=== PATIENT | male | born 1950 | race Caucasian/White ===

== ENCOUNTER 2022-11-30 01:21 | Observation (INO) ==
[2022-11-30] MEDS ORDERED: dilTIAZem HCl 5 MG/ML 5 ML VIAL IV ONE (01:27)
[2022-11-30] MEDS ORDERED: SODIUM CHLORIDE 0.9% 1000ML 500 ML IV ONE (01:29)
[2022-11-30] MEDS ORDERED: dilTIAZem HCl 5 MG/ML 5 ML VIAL IV STA (01:29)
--- NOTE | 2022-11-30 01:34 | Emergency Department Note ---
Impression & Plan Chest pain ADMIT ED Provider Note HPI: The patient is a 72-year-old gentleman with history of atrial fibrillation, status post recent pacemaker placement, presents emergency department this evening with chest pain. Patient states that proximately 2 hours prior to arri hernandez to the ED he developed some substernal chest discomfort. Patient states it was relatively constant and therefore he contacted EMS for transport to the ED. On arrival patient states his chest pain is almost completely gone, he did receive some nitroglycerin in route via EMS which he states improved his discomfort. On arrival the patient is noted to be tachycardic in the 130s consistent with atrial fibrillation with RVR. ROS: - Per HPI *Outpatient medications and allergy history reviewed. *Pertinent external medical records reviewed. PE: General: Alert HEENT: Normocephalic, trachea midline Eyes: Extraocular eye movement is intact, no scleral erythema Pulmonary: Clear to auscultation bilaterally, no wheezing Cardio: Tachycardic rate and irregular rhythm GI: Abdomen is soft, nontender : No suprapubic tenderness MSK: No evidence of trauma or malformation of the extremities, no edema Skin: No evidence of rash Neuro: Alert, no focal deficits Psychiatric: Cooperative lunchroom monitor: - An order was placed for continuous cardiac monitoring - Patient was noted to be in atrial fibrillation with a rate of 127 EKG: (As interpreted by myself): Rate: 128 Rhythm: Atrial fibrillation with RVR Intervals: Within normal limits ST changes: No ST elevation Time: 0127 Interventions: -Aspirin and nitroglycerin provided via EMS prior to arrival Medical Decision Making: Patient presented to the emergency department with transient sensation of chest discomfort, on arrival the patient states this is much improved, he is noted to be in atrial fibrillation with RVR, he does have a history of atrial fibrillation. Chest x-ray obtained does not show any evidence of pneumothorax per my interpretation, EKG shows atrial fibrillation without any ST elevation, patient was given a dose of IV diltiazem and rate did respond into the 90s. High-sensitivity troponin level is elevated at 103, given patient's recent pacemaker implantation, unclear if this could be related to the procedure or if this could be ischemia related to his pain. Patient states his pain is much improved but he still does have some mild chest discomfort. I feel he needs to be admitted to the hospital for trending of troponin levels and observation of his symptoms. Patient is in agreement as this is at the bedside. Case was discussed with the on-call hospitalist for [facility] [place], Dr. Smith, and the patient was placed for admission in stable condition. He was given aspirin prior to arrival. Disposition discussion held by myself with: Patient and at the bedside Discharge prescriptions: * CRITICAL CARE TIME: (40 ) minutes -Stabilization of tachyarrhythmia requiring IV rate control medications for atrial fibrillation with RVR, time spent at the bedside, interpretation of diagnostic studies, discussion with other physicians and arrangement of admission Diagnosis: 1. Atrial fibrillation with RVR 2. Chest pain, acute, nonspecific 3. Elevated troponin Disposition: Admission Balbir Aguiar DO Emergency Medicine Past Med/Surg History Social History Smoking Status: Former smoker Hx Alcohol Use: Yes Hx Substance Use: No Preferred Language: Japanese Jr. Systems Administrator Required: No Current Living Situation: Spouse Feels Safe at Home: Yes Assistive Devices: None Allergies Allergies Allergy/AdvReac Type Severity Reaction Status Date / Time bee venom protein (honey bee) Allergy Severe Anaphylaxis Verified 03/30/22 09:17 Home Meds Home Medications Medication Instructions Recorded Confirmed aspirin 81 mg tablet,delayed 81 mg PO DAILY 05/14/20 11/30/22 release atorvastatin 20 mg tablet 20 mg PO 05/14/20 11/30/22 fluticasone propionate 50 2 spray intranasal DAILY 05/14/20 11/30/22 mcg/actuation nasal spray,suspension metformin 500 mg tablet 500 mg PO [facility] 05/14/20 11/30/22 metoprolol succinate 25 mg 25 mg PO [facility] 05/14/20 11/30/22 tablet,extended release 24 hr montelukast 10 mg tablet 10 mg PO [facility] 05/14/20 11/30/22 apixaban 5 mg tablet (Eliquis) 5 mg PO [facility] 11/28/22 11/30/22 docusate sodium 100 mg capsule 100 mg PO [facility] 11/28/22 11/30/22 famotidine 20 mg tablet (Pepcid) 20 mg PO 11/28/22 11/30/22 amlodipine 5 mg tablet 5 mg PO [facility] 11/30/22 11/30/22 epinephrine 0.3 mg/0.3 mL 0.3 mg IM UD PRN severe reaction 11/30/22 11/30/22 injection, auto-injector (EpiPen) levothyroxine 125 mcg tablet 125 mcg PO DAILYBB 11/30/22 11/30/22 multivitamin with minerals 1 cap PO DAILY 11/30/22 11/30/22 Results & Data (ED) Vital Signs Vital Signs - 24 hr 11/30/22 01:27 11/30/22 02:26 Temperature 36.9 C Temperature Source Oral Pulse Rate 140 H Pulse Rate [Apical] 91 H Respiratory Rate 18 20 Blood Pressure 139/94 Blood Pressure [Right Arm] 121/99 Blood Pressure Mean 109 Blood Pressure Mean [Right Arm] 106 Pulse Oximetry 93 94 Oxygen Delivery Method Room Air Room Air Sepsis Recent Fever Within 48 Hours No Sepsis New/Unexplained Change in Mental Status No Sepsis Action Taken by Nursing No Action Required Laboratory Data 11/30/22 01:20 11/30/22 01:20 Lab Results 11/30/22 11/30/22 11/30/22 Range/Units 01:20 01:20 01:20 WBC 10.40 (4.8-10.8) K/ul RBC 5.79 (4.63-6.08) M/uL Hgb 19.2 H (14.0-18.0) g/dl Hct 53.3 H (40.1-51.0) % MCV 92.1 (80.0-100.0) fL MCH 33.2 (25.0-34.0) pg MCHC 36.0 (32.0-36.0) g/dL RDW Std Deviation 42.5 (36.4-46.3) fL RDW Coeff of Adrian 12.6 (11.5-14.5) % Plt Count 238 (130-400) K/uL MPV 9.6 (9.4-12.4) fL Immature Gran % (Auto) 0.3 % Neut % (Auto) 65.0 % Lymph % (Auto) 20.5 % [place] % (Auto) 10.8 % Eos % (Auto) 2.5 % Baso % (Auto) 0.9 % Neut # (Auto) 6.77 H (1.4-6.5) K/uL Lymph # (Auto) 2.13 (1.2-3.4) K/uL [place] # (Auto) 1.12 H (0.24-0.82) K/uL Eos # (Auto) 0.26 (0-0.50) K/uL Baso # (Auto) 0.09 (0-0.2) K/uL Immature Gran # (Auto) 0.03 H (0.00-0.02) K/uL PT 11.4 (9.0-12.0) Seconds INR 1.1 (0.9-1.1) APTT 31.6 H (21.0-31.0) Seconds PTT Ratio 1.1 Sodium 140 (136-145) mmol/L Potassium 4.1 (3.5-5.1) mmol/L Chloride 102 (98-107) mmol/L Carbon Dioxide 29 (21-32) mmol/L Anion Gap 9 (3-11) BUN 23 (6-23) mg/dl Creatinine 1.54 H (0.6-1.4) mg/dl Est Cr Clr Drug Dosing 50.1 ml/min Est GFR ( Amer) 50.8 ml/min Est GFR (Non-Af Amer) 43.8 ml/min BUN/Creatinine Ratio 14.9 (10-20) Glucose 133 H (70-99(Fasting)) mg/dl Calcium 9.9 (8.5-10.1) mg/dl Total Bilirubin 0.8 (0.2-1.0) mg/dl AST 18 (13-39) U/L ALT 13 (7-52) U/L Alkaline Phosphatase 99 (34-104) U/L Troponin I High Sens 103.8 H* (0-20) pg/ml Total Protein 7.7 (6.0-8.3) gm/dl Albumin 4.5 (3.4-5.0) gm/dl Globulin 3.2 (2.5-4.0) gm/dl Albumin/Globulin Ratio 1.4 (0.9-2) Lipase 23 (11-82) U/L SARS-CoV-2, RNA, NAAT (NEGATIVE) 11/30/22 Range/Units 01:38 WBC (4.8-10.8) K/ul RBC (4.63-6.08) M/uL Hgb (14.0-18.0) g/dl Hct (40.1-51.0) % MCV (80.0-100.0) fL MCH (25.0-34.0) pg MCHC (32.0-36.0) g/dL RDW Std Deviation (36.4-46.3) fL RDW Coeff of Adrian (11.5-14.5) % Plt Count (130-400) K/uL MPV (9.4-12.4) fL Immature Gran % (Auto) % Neut % (Auto) % Lymph % (Auto) % [place] % (Auto) % Eos % (Auto) % Baso % (Auto) % Neut # (Auto) (1.4-6.5) K/uL Lymph # (Auto) (1.2-3.4) K/uL [place] # (Auto) (0.24-0.82) K/uL Eos # (Auto) (0-0.50) K/uL Baso # (Auto) (0-0.2) K/uL Immature Gran # (Auto) (0.00-0.02) K/uL PT (9.0-12.0) Seconds INR (0.9-1.1) APTT (21.0-31.0) Seconds PTT Ratio Sodium (136-145) mmol/L Potassium (3.5-5.1) mmol/L Chloride (98-107) mmol/L Carbon Dioxide (21-32) mmol/L Anion Gap (3-11) BUN (6-23) mg/dl Creatinine (0.6-1.4) mg/dl Est Cr Clr Drug Dosing ml/min Est GFR ( Amer) ml/min Est GFR (Non-Af Amer) ml/min BUN/Creatinine Ratio (10-20) Glucose (70-99(Fasting)) mg/dl Calcium (8.5-10.1) mg/dl Total Bilirubin (0.2-1.0) mg/dl AST (13-39) U/L ALT (7-52) U/L Alkaline Phosphatase (34-104) U/L Troponin I High Sens (0-20) pg/ml Total Protein (6.0-8.3) gm/dl Albumin (3.4-5.0) gm/dl Globulin (2.5-4.0) gm/dl Albumin/Globulin Ratio (0.9-2) Lipase (11-82) U/L SARS-CoV-2, RNA, NAAT NEGATIVE (NEGATIVE) Administered Medications Discontinued Medications Diltiazem HCl (Diltiazem Hcl 5 Mg/Ml 5 Ml Vial) Confirm Administered Dose 25 mg IV .STK-MED ONE Stop: 11/30/22 01:28 Last Admin: 11/30/22 01:33 Dose: Not Given Documented By: GUILLAUME Diltiazem HCl (Diltiazem Hcl 5 Mg/Ml 5 Ml Vial) 10 mg IV NOW STA Stop: 11/30/22 01:30 Last Admin: 11/30/22 01:33 Dose: 10 mg Documented By: GUILLAUME Co-signed By: CELI Sodium Chloride (Nss 1000ml) 500 mls @ 999 mls/hr IV .Q31M ONE Stop: 11/30/22 01:59 Last Infusion: 11/30/22 02:08 Dose: 0 mls/hr Documented By: Admin: 11/30/22 01:33 Dose: 999 mls/hr Documented By: GUILLAUME Morphine Sulfate (Morphine Sulfate 4 Mg/Ml 1 Ml Carp\Vial) 4 mg IV NOW STA Stop: 11/30/22 02:20 Last Admin: 11/30/22 02:22 Dose: 4 mg Documented By: GUILLAUME Ondansetron HCl (Ondansetron Inj 2 Mg/Ml 2 Ml Vial) 4 mg IV NOW STA Stop: 11/30/22 02:20 Last Admin: 11/30/22 02:22 Dose: 4 mg Documented By: GUILLAUME Discharge Plan Visit Data Chief Complaint: Chest Pain Stated Complaint: CHEST PAIN-SUB STERNAL ED Provider: Balbir Aguiar Discharge Problem: Chest pain Patient Disposition: Admitted As Inpatient Forms Stand Alone Forms: My [facility] Prescriptions Prescriptions: No Action metformin 500 mg tablet 500 mg PO [facility] atorvastatin 20 mg tablet 20 mg PO HS aspirin 81 mg Tablet,Delayed Release (Dr/Ec) 81 mg PO DAILY montelukast 10 mg tablet 10 mg PO QAM metoprolol succinate 25 mg tablet extended release 24 hr 25 mg PO [facility] fluticasone propionate 50 mcg/actuation spray,suspension 2 spray INTRANASAL DAILY levothyroxine 125 mcg tablet 125 mcg PO DAILYBB amlodipine 5 mg tablet 5 mg PO QAM Multi-Vitamin W/Minerals Capsule 1 cap PO DAILY epinephrine [EpiPen] 0.3 mg/0.3 mL Auto-Injector 0.3 mg IM UD PRN (Reason: severe reaction) Rx Instructions: place orange end against the outer thigh and press firmly, hold in place for 10 seconds and go to emergency room famotidine [Pepcid] 20 mg Tablet 20 mg PO HS Eliquis 5 mg Tablet 5 mg PO [facility] docusate sodium 100 mg Capsule 100 mg PO [facility] Referrals Referrals: PCP,NO [Physician] -
[2022-11-30 01:41] LABS: Basophils # (auto) 0.09 K/uL (0-0.2); Basophils % (auto) 0.9 %; Eosinophils # (auto) 0.26 K/uL (0-0.50); Eosinophils % (auto) 2.5 %; Hematocrit (blood only) 53.3 % (40.1-51.0); Hemoglobin 19.2 g/dl (14.0-18.0); Immature Granulocytes # (auto) 0.03 K/uL (0.00-0.02); Immature Granulocytes % (auto) 0.3 %; Lymphocytes # (auto) 2.13 K/uL (1.2-3.4); Lymphocytes % (auto) 20.5 %; Mean Corpuscular Hemoglobin 33.2 pg (25.0-34.0); Mean Corpuscular Volume 92.1 fL (80.0-100.0); Mean Platelet Volume 9.6 fL (9.4-12.4); Monocytes # (auto) 1.12 K/uL (0.24-0.82); Monocytes % (auto) 10.8 %; Neutrophils # (auto) 6.77 K/uL (1.4-6.5); Platelet Count 238 K/uL (130-400); RDW Coefficient of Variation 12.6 % (11.5-14.5); RDW Standard Deviation 42.5 fL (36.4-46.3); Red Blood Count 5.79 M/uL (4.63-6.08)
[2022-11-30 01:54] LABS: INR 1.1 (0.9-1.1); Partial Thromboplastin Ratio 1.1; Partial Thromboplastin Time 31.6 Seconds (21.0-31.0); Prothrombin Time 11.4 Seconds (9.0-12.0)
[2022-11-30 02:04] LABS: Albumin Globulin Ratio 1.4 (0.9-2); Albumin Level 4.5 gm/dl (3.4-5.0); BUN Creatinine Ratio 14.9 (10-20); Bilirubin,Total 0.8 mg/dl (0.2-1.0); Calcium 9.9 mg/dl (8.5-10.1); Creatinine Clr Calc Pharmacy 50.1 ml/min; Est GFR (African American) 50.8 ml/min; Est GFR (Non-African American) 43.8 ml/min; Globulin 3.2 gm/dl (2.5-4.0); Potassium 4.1 mmol/L (3.5-5.1); Total Protein 7.7 gm/dl (6.0-8.3)
[2022-11-30 02:12] LABS: Troponin I High Sensitivity 103.8 pg/ml (0-20)
[2022-11-30] MEDS ORDERED: MoRPHine SULFATE 4 MG/ML 1 ML CARP\\VIAL IV STA (02:19)
[2022-11-30] MEDS ORDERED: ONDANSETRON INJ 2 MG/ML 2 ML VIAL IV STA (02:19)
--- NOTE | 2022-11-30 03:23 | History & Physical Report ---
Date of Service November 30, 2022 Assessment & Plan (1) NSTEMI (non-ST elevated myocardial infarction): Plan: Chest pain relieved by nitroglycerin hx nonocclusive CAD Differential diagnosis : Post pericardiotomy syndrome given recent PPM Hypertension elevated secondary to above Rapid A. fib hx SSS status post recent PPM, on Eliquis Improved heart rate post Cardizem administration at the ER COPD/asthma, stable pulmonary status currently Chronic polycythemia likely secondary to BETY/hx CPAP intolerance hyperlipidemia, on statin Rx DM2 on oral medications, well-controlled as of recent hemoglobin A1c of 6.5 last March 2022 hypothyroidism, euthyroid as of today's TSH past tobacco abuse PCU Continue aspirin, beta-noelle, statin Rx Follow troponin TTE, Cardiology consult Re: NSTEMI N.p.o. until patient seen by Cardiology in anticipation of ischemic work-up Hold Eliquis until patient seen by Cardiology May need IV heparin for NSTEMI while Eliquis on hold BP meds may need titration Update lipid profile ISS BG goal 1 10-1 40, update hemoglobin A1c DVT prophylaxis. IV heparin or Eliquis pending Cardiology eval Full code Patient requesting updates providers. Ms. Kelli Santana, contact #[phone]. Text document was generated using [employer] voice recognition software. It may contain grammatical or spelling errors. Kindly contact undersigned for clarification of any documentation item in question. History of Present Illness Chief Complaint: Chest pain Primary Care Provider: Arielle Arevalo MD History obtained from patient, family, and records. Medical history significant for nonocclusive CAD, SSS status post recent PPM, A. fib status post ablation on Eliquis, COPD/asthma, BETY/CPAP intolerance, chronic polycythemia, hypertension, hyperlipidemia, DM2 on oral medications, hypothyroidism, GERD, past tobacco abuse. Last confinement 2015 for recurrent atrial flutter status post ablation. Patient with exertional SOB symptoms last year. Cardiac cath recommendation by spline rolling machine job setter denied by insurance. No inducible ischemia on outpatient Lexiscan nuclear stress test last July 2022. Patient underwent elective PPM placement for tachybradycardia syndrome 2 days ago at [facility]. No immediate postprocedure concerns. Patient was in bed last night when he experienced pleuritic substernal pain without radiation with shortness of breath. No unusual cough symptoms. No palpitations. No previous episodes. Compliant with home medications. EMS called. Initial blood pressure at home noted to be 190/110. Patient does not check BP regularly at home but never that high. Chest pain improvement following aspirin and nitro Rx administered at home. Patient brought to the ER for evaluation. Patient noted to be in rapid A. fib upon arrival at the ER. Heart rate 140s. 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 Allergies Allergy/AdvReac Type Severity Reaction Status Date / Time bee venom protein (honey bee) Allergy Severe Anaphylaxis Verified 03/30/22 09:17 Home Medications Medication Instructions Recorded Confirmed Type aspirin 81 mg tablet,delayed 81 mg PO DAILY 05/14/20 11/30/22 History release atorvastatin 20 mg tablet 20 mg PO 05/14/20 11/30/22 History fluticasone propionate 50 2 spray intranasal DAILY 05/14/20 11/30/22 History mcg/actuation nasal spray,suspension metformin 500 mg tablet 500 mg PO [facility] 05/14/20 11/30/22 History metoprolol succinate 25 mg 25 mg PO [facility] 05/14/20 11/30/22 History tablet,extended release 24 hr montelukast 10 mg tablet 10 mg PO [facility] 05/14/20 11/30/22 History apixaban 5 mg tablet (Eliquis) 5 mg PO [facility] 11/28/22 11/30/22 History docusate sodium 100 mg capsule 100 mg PO [facility] 11/28/22 11/30/22 History famotidine 20 mg tablet (Pepcid) 20 mg PO 11/28/22 11/30/22 History albuterol sulfate 90 mcg/actuation 2 puff inhalation Q4 PRN 11/30/22 11/30/22 History aerosol inhaler cough,SOB,or wheezing amlodipine 5 mg tablet 5 mg PO [facility] 11/30/22 11/30/22 History epinephrine 0.3 mg/0.3 mL 0.3 mg IM UD PRN severe reaction 11/30/22 11/30/22 History injection, auto-injector (EpiPen) fluticasone furoate 200 1 inh inhalation [facility] 11/30/22 11/30/22 History mcg-vilanterol 25 mcg/dose inhalation powder (Breo Ellipta) levothyroxine 125 mcg tablet 125 mcg PO DAILYBB 11/30/22 11/30/22 History lorazepam 1 mg tablet 1 mg PO UD PRN 30 min prior to MRI 11/30/22 11/30/22 History multivitamin with minerals 1 cap PO DAILY 11/30/22 11/30/22 History Past Med/Surg History Social History Smoking Status: Former smoker Hx Alcohol Use: No Hx Substance Use: No Preferred Language: Cuban Administrative Office Assistant Required: No Beliefs That Will Affect Care: None Current Living Situation: Spouse Other Information That Helps Us Care for You: No Feels Safe at Home: Yes Safety Concerns: Feels Safe At This Time Assistive Devices: Glasses Review of Systems Review of Systems: As per HPI, all other systems reviewed and negative Physical Exam Physical Exam: GENERAL: Comfortable, pleasant, obese, no respiratory distress SKIN: Normal color, warm HEENT: [place] palpebral conjunctivae, no ptosis, moist buccal mucosa NECK : Supple, short neck, no tenderness CHEST : CTA, no tenderness HEART : Irregular, no obvious murmurs ABDOMEN: Some distention, nontender EXTREMITIES : No LE swelling/tenderness, no other conspicuous deformities noted NEUROLOGIC : Coherent, no facial asymmetry, no other gross focality Results & Data Results & Data ([facility]) Vital Signs (Past 12 Hours) Vital Signs Temp Pulse Pulse Resp BP BP Pulse Ox 11/30/22 02:26 91 H 20 121/99 94 11/30/22 01:27 36.9 C 140 H 18 139/94 93 O2 Del Method 11/30/22 02:26 Room Air 11/30/22 01:27 Room Air Laboratory Results Laboratory Results WBC 10.40 K/ul (4.8-10.8) 11/30/22 01:20 RBC 5.79 M/uL (4.63-6.08) 11/30/22 01:20 Hgb 19.2 g/dl (14.0-18.0) H 11/30/22 01:20 Hct 53.3 % (40.1-51.0) H 11/30/22 01:20 MCV 92.1 fL (80.0-100.0) 11/30/22 01:20 MCH 33.2 pg (25.0-34.0) 11/30/22 01:20 MCHC 36.0 g/dL (32.0-36.0) 11/30/22 01:20 RDW Std Deviation 42.5 fL (36.4-46.3) 11/30/22 01:20 RDW Coeff of Adrian 12.6 % (11.5-14.5) 11/30/22 01:20 Plt Count 238 K/uL (130-400) 11/30/22 01:20 MPV 9.6 fL (9.4-12.4) 11/30/22 01:20 Immature Gran % (Auto) 0.3 % 11/30/22 01:20 Neut % (Auto) 65.0 % 11/30/22 01:20 Lymph % (Auto) 20.5 % 11/30/22 01:20 [place] % (Auto) 10.8 % 11/30/22 01:20 Eos % (Auto) 2.5 % 11/30/22 01:20 Baso % (Auto) 0.9 % 11/30/22 01:20 Neut # (Auto) 6.77 K/uL (1.4-6.5) H 11/30/22 01:20 Lymph # (Auto) 2.13 K/uL (1.2-3.4) 11/30/22 01:20 [place] # (Auto) 1.12 K/uL (0.24-0.82) H 11/30/22 01:20 Eos # (Auto) 0.26 K/uL (0-0.50) 11/30/22 01:20 Baso # (Auto) 0.09 K/uL (0-0.2) 11/30/22 01:20 Immature Gran # (Auto) 0.03 K/uL (0.00-0.02) H 11/30/22 01:20 PT 11.4 Seconds (9.0-12.0) 11/30/22 01:20 INR 1.1 (0.9-1.1) 11/30/22 01:20 APTT 31.6 Seconds (21.0-31.0) H 11/30/22 01:20 PTT Ratio 1.1 11/30/22 01:20 Sodium 140 mmol/L (136-145) 11/30/22 01:20 Potassium 4.1 mmol/L (3.5-5.1) 11/30/22 01:20 Chloride 102 mmol/L (98-107) 11/30/22 01:20 Carbon Dioxide 29 mmol/L (21-32) 11/30/22 01:20 Anion Gap 9 (3-11) 11/30/22 01:20 BUN 23 mg/dl (6-23) 11/30/22 01:20 Creatinine 1.54 mg/dl (0.6-1.4) H 11/30/22 01:20 Est Cr Clr Drug Dosing 50.1 ml/min 11/30/22 01:20 Est GFR ( Amer) 50.8 ml/min 11/30/22 01:20 Est GFR (Non-Af Amer) 43.8 ml/min 11/30/22 01:20 BUN/Creatinine Ratio 14.9 (10-20) 11/30/22 01:20 Glucose 133 mg/dl (70-99(Fasting)) H 11/30/22 01:20 Calcium 9.9 mg/dl (8.5-10.1) 11/30/22 01:20 Total Bilirubin 0.8 mg/dl (0.2-1.0) 11/30/22 01:20 AST 18 U/L (13-39) 11/30/22 01:20 ALT 13 U/L (7-52) 11/30/22 01:20 Alkaline Phosphatase 99 U/L (34-104) 11/30/22 01:20 Troponin I High Sens 103.8 pg/ml (0-20) H* 11/30/22 01:20 Total Protein 7.7 gm/dl (6.0-8.3) 11/30/22 01:20 Albumin 4.5 gm/dl (3.4-5.0) 11/30/22 01:20 Globulin 3.2 gm/dl (2.5-4.0) 11/30/22 01:20 Albumin/Globulin Ratio 1.4 (0.9-2) 11/30/22 01:20 Lipase 23 U/L (11-82) 11/30/22 01:20 SARS-CoV-2, RNA, NAAT NEGATIVE (NEGATIVE) 11/30/22 01:38 Diagnostic Findings Chest x-ray as per my interpretation: Pacemaker, cardiomegaly, atelectasis EKG as per my interpretation : Rate 130, A. fib, LAD, LAFB, no ischemia
[2022-11-30] MEDS ORDERED: HYDROmorphone INJ 0.5 MG/0.5 ML SYR IV PRN (03:29)
[2022-11-30] MEDS ORDERED: LORazepam 0.5 MG TAB PO PRN (03:29)
[2022-11-30] MEDS ORDERED: traMADol HCL 50 MG TABLET PO PRN (03:29)
[2022-11-30] MEDS ORDERED: PROMETHAZINE HCL 12.5 MG in SODIUM CHLORIDE 0.9% 50 ML IV PRN (03:29)
[2022-11-30] MEDS ORDERED: LACTATED RINGER'S 1,000 ML IV STA (03:35)
[2022-11-30] MEDS ORDERED: MAGNESIUM SULFATE / D5W 1 GM/100 ML BAG IV STA (04:17)
[2022-11-30] MEDS ORDERED: GLUCOSE 10 TAB/TUBE PO PRN (04:36)
[2022-11-30] MEDS ORDERED: CARBOHYDRATES FOR HYPOGLYCEMIA PO PRN (04:36)
[2022-11-30] MEDS ORDERED: NITROGLYCERIN SL 0.4 MG/TAB TAB SL PRN (04:36)
[2022-11-30] MEDS ORDERED: DEXTROSE 50% 50 ML SYRINGE IV PRN (04:36)
[2022-11-30] MEDS ORDERED: GLUCAGON FOR INJ 1 MG VIAL SQ PRN (04:36)
[2022-11-30] MEDS ORDERED: ACETAMINOPHEN 325 MG TAB PO PRN (04:36)
[2022-11-30] MEDS ORDERED: GLUCOSE 40% GEL 15 GM TUBE PO PRN (04:36)
[2022-11-30] MEDS ORDERED: NITROGLYCERIN SL 0.4 MG/TAB TAB ONE (04:41)
[2022-11-30] MEDS: INSULIN ASPART PER UNIT SC SCH ×4 (05:04→20:21)
[2022-11-30] MEDS: LEVOTHYROXINE SODIUM 125 MCG TABLET PO SCH (06:23)
[2022-11-30 06:50] LABS: Chol HDL Ratio 3.4 (0-5)
[2022-11-30 07:23] LABS: Troponin I High Sensitivity 76.1 pg/ml (0-20)
[2022-11-30] MEDS: MONTELUKAST SODIUM 10 MG TABLET PO SCH (08:14)
[2022-11-30] MEDS: CEROVITE ADV FORMULA TAB PO SCH (08:14)
[2022-11-30] MEDS: DOCUSATE SODIUM 100 MG CAP PO SCH ×2 (08:14→20:38)
[2022-11-30] MEDS: amLODIPine BESYLATE 5 MG TAB PO SCH (08:14)
[2022-11-30] MEDS: METOPROLOL SUCC 25MG EXT REL TAB PO SCH ×2 (08:14→20:39)
[2022-11-30] MEDS: FLUTICASONE PROPIONATE NA SPR 16 GM BTL SCH (08:15)
[2022-11-30] MEDS: FLUTICASONE/VILANTEROL 200/25MCG 14 PUFFS/INHALER INH SCH (08:15)
[2022-11-30 08:36] LABS: Estimated Average Glucose 140 mg/dl; Hemoglobin A1C 6.5 % (4.5-5.6)
--- NOTE | 2022-11-30 08:45 | Cardiology Consultation ---
Date of Consultation November 30, 2022 Assessment & Plan (1) Chest pain: (2) MEMBRENO (dyspnea on exertion): (3) Tachy-ben syndrome: (4) Cardiac pacemaker in situ: (5) Afib: (6) Hypertensive heart disease: Plan Medically complex 72-year-old male who presented to the emergency department last evening due to what seems to be described as pleuritic chest discomfort. -Patient is status post pacemaker 2 days ago. CXR and exam without evidence of pneumothorax. -HS Troponin elevated in the 70s, possibly due to recent pacemaker insertion. Trivial pericardial effusion noted on echo. -Patient currently in atrial fib with heart rates in the 80s. Recommendations: Further work-up/treatment possibly including antiarrhythmic therapy with initiation of amiodarone versus cardiac catheterization to rule out ischemic heart disease. Recommend pacemaker interrogation to assess thresholds/leads Further recommendations pending Dr. Boles's assessment. Of note, Eliquis is currently on hold and patient remains NPO. Case discussed with Dr. Boles- will follow. Supervising Physician Co-Signing Physician Notes Patient was seen and examined personally, chart reviewed and telemetry reviewed. Current complaints are pleuritic discomfort with movement and inspiration. Echocardiogram with trivial effusion. Patient was in atrial fibrillation flutter with elevated response rate on presentation with elevated ventricular response rates. Findings do not suggest acute coronary syndrome. Suspect troponin elevation reflective of recent procedure. Pacer site intact Impression: Pleuritic/positional discomfort post cardiac procedure Paroxysmal atrial fibrillation flutter with variable heart response Plan: Resume diet and Eliquis We will interrogate pacemaker Begin oral amiodarone for arrhythmia control Add colchicine if symptoms persist History of Present Illness Reason for Consultation: Chest pain Requesting Physician: Reed gaviria Attending Physician: Rony Madera MD History of Present Illness Medically complex 72-year-old male. Presented to the emergency department due to chest pain and shortness of breath that occurred while resting in bed last evening. Discomfort occurred after taking his evening mediations. He got up and watched some TV but the pain persisted and EMS was called. Blood pressure was 190/110, normally blood pressures well controlled. Chest pain improved with aspirin and nitro administration initially but quickly returned. He continues to have waxing and waning chest discomfort. Worsens with deep inspiration or position changes on his left side. Does not have a chest pain history prior to his ppm insertion. Non exertional qualities. Chest pain does cause some mild dyspnea. No palpitations. Recent Cardiac History: Initially dating back to the end of June he saw Dr. Moreira in our outpatient clinic with concerns regarding shortness of breath and easy fatigability. Documented recurrent atrial arrhythmias including SVT, atrial flutter, and A. fib noted. He did have 1 episode of nonsustained VT. Echocardiogram suggested asymmetric hypertrophy affecting the lateral wall. Variant of hypertrophic cardiomyopathy with lateral hypertrophy was questionable due to his EKG findings. There was concern for myocardial ischemia and a cardiac catheterizati on was recommended however insurance denied. A nuclear stress test was then completed which was negative for inducible ischemia (07/2022). During the study he did have elevated heart rates with exercise. Urine immunofixation within normal limits, serum protein electrophoresis within normal limits, mild elevation of urine kappa and lambda free light chains. Cardiac MRI completed on 08/16/2022 showed normal biventricular systolic function with mild concentric LVH. There was no evidence of cardiac amyloidosis or cardiac hemochromatosis. Findings of mild LVH were suggestive of hypertensive heart disease. EF was normal at 55%. Was last evaluated by the undersigned on 09/10 as an outpatient. At this time he voiced concerns regarding ongoing atrial fibrillation/flutter and went on to see Dr. Reed who ultimately placed a dual-chamber permanent pacemaker on 11/28/2022. Discussion regarding antiarrhythmic therapy was had. [place] that he would be a poor candidate for sotalol therapy given underlying pulmonary symptoms. [place] that amiodarone would be favored. EKG 11/30/2022: A. fib with RVR, 128 bpm. QTc 438 ms Labs: Hemoglobin 19.2, serum creatinine 1.54 (baseline between 1.1 and 1.3 as an outpatient), electrolytes within normal limits, high-sensitivity troponin (103.8>>76.1), TSH normal, COVID-negative Chest x-ray 11/28: Status post permanent pacemaker, no evidence of pneumothorax Echo 11/30: Low normal LVEF of 50-55%, borderline global hypokinesis of the LV with moderate concentric LVH. Trivial posterolateral effusion. No significant valvular abnormalities. Past medical history: 1. Paroxysmal atrial fibrillation/flutter a.History of right-sided flutter, status post DCCV, 2009 with recurrence in 2016 i. Status post caval tricuspid isthmus ablation, 2016 b. Recurrence of possible atrial fibrillation 04/24/2022, occurred in the setting of a respiratory infection- Eliquis started i. TBS- s/p dcp 11/28/2022 at [facility] with Dr. Reed 2. History of nonischemic cardiomyopathy a. H/o Mild LV dysfunction the setting of atrial arrhythmias 3. Chronic atypical EKG with diffuse inferior T-wave inversion in the lateral le ads a. cMRI without amyloid or HCM evidence, 07/2022 4. Nonobstructive CAD per remote cardiac catheterization 5. Hypertension 6. Dyslipidemia 7. Enlarged aortic root measuring 3.9 cm per echo, 06/2022 8. Chronic polycythemia Allergies Allergy/AdvReac Type Severity Reaction Status Date / Time bee venom protein (honey bee) Allergy Severe Anaphylaxis Verified 03/30/22 09:17 Home Medications Medication Instructions Recorded Confirmed Type aspirin 81 mg tablet,delayed 81 mg PO DAILY 05/14/20 11/30/22 History release atorvastatin 20 mg tablet 20 mg PO 05/14/20 11/30/22 History fluticasone propionate 50 2 spray intranasal DAILY 05/14/20 11/30/22 History mcg/actuation nasal spray,suspension metformin 500 mg tablet 500 mg PO [facility] 05/14/20 11/30/22 History metoprolol succinate 25 mg 25 mg PO [facility] 05/14/20 11/30/22 History tablet,extended release 24 hr montelukast 10 mg tablet 10 mg PO [facility] 05/14/20 11/30/22 History apixaban 5 mg tablet (Eliquis) 5 mg PO [facility] 11/28/22 11/30/22 History docusate sodium 100 mg capsule 100 mg PO [facility] 11/28/22 11/30/22 History famotidine 20 mg tablet (Pepcid) 20 mg PO 11/28/22 11/30/22 History albuterol sulfate 90 mcg/actuation 2 puff inhalation Q4 PRN 11/30/22 11/30/22 History aerosol inhaler cough,SOB,or wheezing amlodipine 5 mg tablet 5 mg PO QAM 11/30/22 11/30/22 History epinephrine 0.3 mg/0.3 mL 0.3 mg IM UD PRN severe reaction 11/30/22 11/30/22 History injection, auto-injector (EpiPen) fluticasone furoate 200 1 inh inhalation QAM 11/30/22 11/30/22 History mcg-vilanterol 25 mcg/dose inhalation powder (Breo Ellipta) levothyroxine 125 mcg tablet 125 mcg PO DAILYBB 11/30/22 11/30/22 History lorazepam 1 mg tablet 1 mg PO UD PRN 30 min prior to MRI 11/30/22 11/30/22 History multivitamin with minerals 1 cap PO DAILY 11/30/22 11/30/22 History Patient History Social History Smoking Status: Former smoker Hx Alcohol Use: No Hx Substance Use: No Preferred Language: Welsh Office Messenger Helper Required: No Beliefs That Will Affect Care: None Current Living Situation: Spouse Other Information That Helps Us Care for You: No Feels Safe at Home: Yes Safety Concerns: Feels Safe At This Time Assistive Devices: Glasses Review of Systems Review of Systems: All systems reviewed & are unremarkable except as noted in HPI & below Physical Exam Constitutional: WD/WN, vitals as above no acute distress Eyes: PERRL, conjunctivae normal, anicteric sclerae ENMT: external ear and nose normal, oropharynx normal Neck: normal visual inspection and trachea midline Respiratory: normal respiratory effort, lungs clear to auscultation no cough Cardiovascular: Rate/Rhythm: regular rate and + irregularly irregular Heart Sounds: normal S1 and normal S2 Palpation: normal PMI Vessels: + JVD Extremities: normal capillary refill Chest (Breasts): Chest: + pacemaker (insertion site clean and intact- no signs of infection. Dressing dry. ) Gastrointestinal (Abdomen): normal bowel sounds, soft, nontender, no hepatosplenomegaly Musculoskeletal: no cyanosis or clubbing, extremities motor strength 5/5 Skin: no rashes, warm and dry Psychiatric: A+Ox3, euthymic affect Results & Data ([facility]) Vital Signs (Past 12 Hours) Vital Signs Temp Pulse Pulse Resp BP BP Pulse Ox 11/30/22 08:02 36.8 C 76 18 147/101 H 94 11/30/22 04:38 90 11/30/22 04:54 133/84 11/30/22 04:39 36.7 C 72 20 157/93 H 95 11/30/22 04:00 70 12 117/86 94 11/30/22 03:30 86 18 136/79 92 11/30/22 03:00 79 12 123/78 96 11/30/22 02:30 96 H 13 130/79 93 11/30/22 02:26 91 H 20 121/99 94 11/30/22 01:27 36.9 C 140 H 18 139/94 93 O2 Del Method 11/30/22 08:02 Room Air 11/30/22 04:38 11/30/22 04:54 11/30/22 04:39 Room Air 11/30/22 04:00 11/30/22 03:30 11/30/22 03:00 11/30/22 02:30 11/30/22 02:26 Room Air 11/30/22 01:27 Room Air Laboratory Results Cardiac Enzymes 11/30/22 11/30/22 11/30/22 Range/Units 01:20 05:50 05:50 AST 18 (13-39) U/L Troponin I High Sens 103.8 H* 76.1 H* D Cancelled (0-20) pg/ml Coagulation 11/30/22 Range/Units 01:20 PT 11.4 (9.0-12.0) Seconds APTT 31.6 H (21.0-31.0) Seconds Lipids 11/30/22 Range/Units 05:50 Triglycerides 114 (0-150) mg/dl Cholesterol 113 (0-200) mg/dl HDL Cholesterol 33 mg/dl Cholesterol/HDL Ratio 3.4 (0-5) CBC 11/30/22 Range/Units 01:20 WBC 10.40 (4.8-10.8) K/ul RBC 5.79 (4.63-6.08) M/uL Hgb 19.2 H (14.0-18.0) g/dl Hct 53.3 H (40.1-51.0) % Plt Count 238 (130-400) K/uL Neut # (Auto) 6.77 H (1.4-6.5) K/uL Lymph # (Auto) 2.13 (1.2-3.4) K/uL [place] # (Auto) 1.12 H (0.24-0.82) K/uL Eos # (Auto) 0.26 (0-0.50) K/uL Baso # (Auto) 0.09 (0-0.2) K/uL Comprehensive Metabolic Panel 11/30/22 11/30/22 Range/Units 01:20 05:50 Sodium 140 Cancelled (136-145) mmol/L Potassium 4.1 Cancelled (3.5-5.1) mmol/L Chloride 102 Cancelled (98-107) mmol/L Carbon Dioxide 29 Cancelled (21-32) mmol/L BUN 23 Cancelled (6-23) mg/dl Creatinine 1.54 H Cancelled (0.6-1.4) mg/dl Glucose 133 H Cancelled (70-99(Fasting)) mg/dl Calcium 9.9 Cancelled (8.5-10.1) mg/dl AST 18 (13-39) U/L ALT 13 (7-52) U/L Alkaline Phosphatase 99 (34-104) U/L Total Protein 7.7 (6.0-8.3) gm/dl Albumin 4.5 (3.4-5.0) gm/dl Intake and Output 11/29/22 11/30/22 11/30/22 22:59 06:59 14:59 Intake Total 500 / 500 100 / 100 Balance 500 / 500 100 / 100 Intake: IV 500 / 500 100 / 100 Magnesium Sulfate / D5w 1 gm In 100 / 100 100 ml @ 50 mls/hr IV ONE STA Rx#:[id number] Sodium Chloride 0.9% 1000ML 500 500 / 500 ml @ 999 mls/hr IV .Q31M ONE Rx#:[id number] Other: Other Intake Source sips Weight 98.5 kg Weight Measurement Method Built in [facility] (1) Chest pain Chest pain type: unspecified Qualified Code(s): R07.9 - Chest pain, unspecified
--- NOTE | 2022-11-30 09:35 | XRay Report ---
XR chest 1V portable CLINICAL HISTORY: Chest pain, nonspecific COMPARISON STUDY: Chest radiograph November 28, 2022. FINDINGS: Left subclavian pacer is in place. Cardiomegaly is unchanged. There is no evidence for pulm onary edema. No consolidation is present. Linear left basilar opacity reflects atelectasis. IMPRESSION: No acute cardiopulmonary findings. Cardiomegaly. ACT 112: Negative or not required by law. Electronically signed by: Chin Hamilton M.D. 11/30/2022 9:34 AM
[2022-11-30] MEDS ORDERED: AMIODARONE 200 MG TAB PO ONE (11:00)
[2022-11-30] MEDS: APIXABAN 5 MG TABLET PO SCH ×2 (12:09→20:37)
--- NOTE | 2022-11-30 14:03 | Electrocardiogram Report ---
Test Reason : Blood Pressure : / mmHG Vent. Rate : 128 BPM Atrial Rate : 122 BPM P-R Int : 000 ms QRS Dur : 090 ms QT Int : 300 ms P-R-T Axes : 000 -31 130 degrees QTc Int : 438 ms Atrial fibrillation with rapid ventricular response Left axis deviation Abnormal ECG When compared with ECG of 28-NOV-2022 14:16, Vent. rate has increased BY 55 BPM T wave inversion less evident in Anterolateral leads Confirmed by Ford Gomez ([id number]) on 11/30/2022 2:02:51 PM Referred By: REFERRED SELF Confirmed By:Ford Gomez
--- NOTE | 2022-11-30 14:05 | Electrocardiogram Report ---
Test Reason : Blood Pressure : / mmHG Vent. Rate : 083 BPM Atrial Rate : 344 BPM P-R Int : 000 ms QRS Dur : 096 ms QT Int : 372 ms P-R-T Axes : 000 -22 145 degrees QTc Int : 437 ms Atrial flutter with variable A-V block Abnormal ECG When compared with ECG of 30-NOV-2022 01:27, (unconfirmed) Atrial flutter has replaced Atrial fibrillation Vent. rate has decreased BY 45 BPM T wave amplitude has decreased in Anterior leads Confirmed by Ford Gomez ([id number]) on 11/30/2022 2:04:53 PM Referred By: REFERRED SELF Confirmed By:Ford Gomez
--- NOTE | 2022-11-30 14:17 | Communication Note ---
Date of Service: November 30, 2022 72-year-old man with PMH of nonocclusive CAD status post recent PPM for SSS, A. fib status post ablation on Eliquis, COPD/asthma, BETY/CPAP intolerance, chronic polycythemia, HTN, HLD, DM2, hypothyroidism, GERD, past tobacco abuse who underwent elective PPM placement for tachybradycardia syndrome 2 days ago at [facility] presented 11/30 with pleuritic substernal chest pain without radiation, aggravated with deep breathing, associated with some shortness of breath. Admitting labs and CXR fairly WNL, no evidence of pneumothorax on CXR. Troponin was elevated at 103.8, down trended, chest pain not very indicative of ACS. For his pleuritic chest pain post cardiac procedure, cardiology evaluated, will resume his diet and Eliquis. Amiodarone has been started. Continue to monitor over telemetry. On examination: Patient was lying in bed, on room air, no reproducible chest pain with palpation, no BLE edema, heart lungs and abdominal examination fairly WNL. Patient denies any recent viral-like illness or diarrhea or fever or myalgia. For detailed note on the patient, refer to today's H&P.
[2022-11-30] MEDS: AMIODARONE 200 MG TAB PO SCH ×2 (14:21→20:37)
[2022-11-30] MEDS ORDERED: AMIODARONE 200 MG TAB PO SCH (17:00)
[2022-11-30] MEDS ORDERED: FAMOTIDINE 20 MG TAB PO SCH (21:00)
[2022-11-30] MEDS ORDERED: ASPIRIN 81 MG ECTAB PO SCH (21:00)
[2022-11-30] MEDS ORDERED: ATORVASTATIN 20 MG TAB PO SCH (21:00)
[2022-12-01 03:19] LABS: Appearance Urine Clear (Clear); Bacteria Urine Automated Negative (Negative); Bilirubin Urine Negative (Negative); Blood Urine 2+ (Negative); Cast Urine Automated 0 /lpf (0-5); Color Urine Yellow; Epithelial Cell Urine Auto 0-5 /lpf (0-5); Glucose Urine UA Negative (Negative); Ketones Urine Trace (Negative); Leukocyte Esterase Urine Negative (Negative); Nitrite Urine Negative (Negative); Protein Urine Negative (Negative); Specific Gravity Urine 1.014 (1.000-1.030); Urobilinogen Urine Negative (Negative); pH Urine 5.5 (4.5-7.5)
[2022-12-01] MEDS: LEVOTHYROXINE SODIUM 125 MCG TABLET PO SCH (05:53)
[2022-12-01 06:35] LABS: Calcium 8.4 mg/dl (8.5-10.1); Creatinine Clr Calc Pharmacy 45.8 ml/min; Est GFR (Non-African American) 40.6 ml/min; Magnesium 1.8 mg/dl (1.7-2.4); Potassium 4.6 mmol/L (3.5-5.1)
[2022-12-01 06:49] LABS: Basophils # (auto) 0.07 K/uL (0-0.2); Basophils % (auto) 0.8 %; Eosinophils % (auto) 3.3 %; Hematocrit (blood only) 43.5 % (40.1-51.0); Hemoglobin 15.4 g/dl (14.0-18.0); Immature Granulocytes # (auto) 0.03 K/uL (0.00-0.02); Immature Granulocytes % (auto) 0.3 %; Lymphocytes # (auto) 1.49 K/uL (1.2-3.4); Lymphocytes % (auto) 16.4 %; Mean Corpuscular Hemoglobin 32.6 pg (25.0-34.0); Mean Corpuscular Hgb Conc 35.4 g/dL (32.0-36.0); Mean Platelet Volume 9.6 fL (9.4-12.4); Monocytes # (auto) 1.07 K/uL (0.24-0.82); Monocytes % (auto) 11.8 %; Neutrophils % (auto) 67.4 %; Platelet Count 174 K/uL (130-400); RDW Coefficient of Variation 12.3 % (11.5-14.5); RDW Standard Deviation 41.9 fL (36.4-46.3); Red Blood Count 4.73 M/uL (4.63-6.08); White Blood Count 9.06 K/ul (4.8-10.8)
[2022-12-01] MEDS: APIXABAN 5 MG TABLET PO SCH (08:10)
[2022-12-01] MEDS: METOPROLOL SUCC 25MG EXT REL TAB PO SCH (08:10)
[2022-12-01] MEDS: DOCUSATE SODIUM 100 MG CAP PO SCH (08:11)
[2022-12-01] MEDS: FLUTICASONE PROPIONATE NA SPR 16 GM BTL SCH (08:11)
[2022-12-01] MEDS: AMIODARONE 200 MG TAB PO SCH ×2 (08:11→14:59)
[2022-12-01] MEDS: MONTELUKAST SODIUM 10 MG TABLET PO SCH (08:11)
[2022-12-01] MEDS: amLODIPine BESYLATE 5 MG TAB PO SCH (08:11)
[2022-12-01] MEDS: CEROVITE ADV FORMULA TAB PO SCH (08:12)
[2022-12-01] MEDS: INSULIN ASPART PER UNIT SC SCH ×2 (08:14→12:50)
[2022-12-01] MEDS: FLUTICASONE/VILANTEROL 200/25MCG 14 PUFFS/INHALER INH SCH (08:17)
[2022-12-01] MEDS ORDERED: SODIUM CHLORIDE 0.9% 1000ML 1,000 ML IV SCH (10:00)
[2022-12-01 11:35] LABS: Procalcitonin < 0.05 ng/ml (0-0.5)
[2022-12-01 11:41] LABS: Lyme Ab IgG w/WB Rflx Negative (Negative); Lyme Ab IgM w/WB Rflx Negative (Negative)
--- NOTE | 2022-12-01 14:08 | Cardiology Progress Note ---
Date of Service December 01, 2022 Assessment & Plan (1) Chest pain: (2) MEMBRENO (dyspnea on exertion): (3) Tachy-ben syndrome: (4) Cardiac pacemaker in situ: (5) Afib: (6) Hypertensive heart disease: Plan Medically complex 72-year-old male who presented to the emergency department last evening due to what seems to be described as pleuritic chest discomfort. -Patient is status post pacemaker 2 days ago. CXR and exam without evidence of pneumothorax. -HS Troponin elevated in the 70s, possibly due to recent pacemaker insertion. Trivial pericardial effusion noted on echo. -Patient currently in atrial fib with heart rates in the 80s. Impression: Pleuritic and positional chest pain post pacemaker insertion resolved Atrial fibrillation, paroxysmal with tachybradycardia syndrome status post pacemaker Hypertension Recommendations: Continue amiodarone therapy at 200 mg twice per day pacemaker check follow-up as scheduled 12/06/2022, clinic follow-up 12/12/2022 Repeat renal function post discharge Patient would likely benefit from BENEDICT or ARB post hospital follow-up Admission and Anticipated Discharge Date Admission Date: November 30, 2022 Subjective Patient seen and examined, chart, medications, telemetry reviewed. No complaints this morning prior chest discomfort and pleuritic pain resolved. Heart rate better controlled but remains in atrial fibrillation EKG without QT prolongation Blood pressure mildly elevated today Review of Systems Review of Systems: All systems reviewed & are unremarkable except as noted in Subjective Physical Exam Constitutional: WD/WN, vitals as above no acute distress Eyes: PERRL, conjunctivae normal, anicteric sclerae Neck: trachea midline, no thyromegaly Respiratory: normal respiratory effort, lungs clear to auscultation Cardiovascular: Rate/Rhythm: + irregularly irregular Vessels: no JVD Extremities: no edema Chest (Breasts): Chest: + pacemaker (Site intact) Musculoskeletal: no cyanosis or clubbing, extremities motor strength 5/5 Results & Data ([facility]) Vital Signs (Past 12 Hours) Vital Signs Temp Pulse Resp BP Pulse Ox O2 Del Method 12/01/22 11:34 36.4 C L 78 18 151/93 H 97 Room Air 12/01/22 07:50 36.9 C 72 18 153/86 H 95 Room Air 12/01/22 03:02 36.5 C 68 18 160/89 H 94 Room Air Laboratory Results Laboratory Results - last 24 hr 11/30/22 11/30/22 12/01/22 16:21 20:15 03:00 WBC RBC Hgb Hct MCV MCH MCHC RDW Std Deviation RDW Coeff of Adrian Plt Count MPV Immature Gran % (Auto) Neut % (Auto) Lymph % (Auto) [place] % (Auto) Eos % (Auto) Baso % (Auto) Neut # (Auto) Lymph # (Auto) [place] # (Auto) Eos # (Auto) Baso # (Auto) Immature Gran # (Auto) Sodium Potassium Chloride Carbon Dioxide Anion Gap BUN Creatinine Est Cr Clr Drug Dosing Est GFR ( Amer) Est GFR (Non-Af Amer) BUN/Creatinine Ratio Glucose POC Glucose 134 H 139 H Calcium Magnesium C-Reactive Protein Procalcitonin Urine Color Yellow Urine Appearance Clear Urine pH 5.5 Ur Specific [place] 1.014 Urine Protein Negative Urine Glucose (UA) Negative Urine Ketones Trace H Urine Blood 2+ H Urine Nitrite Negative Urine Bilirubin Negative Urine Urobilinogen Negative Ur Leukocyte Esterase Negative Urine WBC (Auto) 1-5 Urine RBC (Auto) 10-30 H U Hyaline Cast (Auto) 0 U Epithel Cells (Auto) 0-5 Urine Bacteria (Auto) Negative Anaplasma Smear A. phagocytophilum DNA Babesia Smear Babesia microti DNA PCR Lyme Disease IgG Ab Lyme Disease IgM Ab E.chaffeensis DNA (PCR) Q Fever Phase I IgG Ab Q Fever Phase I IgM Ab Q Fever Phase II IgG Ab Q Fever Phase II IgM Ab [place] IgG Ab [place] IgM Ab Typhus Fever IgG Ab Typhus Fever IgM Ab 12/01/22 12/01/22 12/01/22 05:26 05:26 07:25 WBC 9.06 RBC 4.73 Hgb 15.4 D Hct 43.5 MCV 92.0 MCH 32.6 MCHC 35.4 RDW Std Deviation 41.9 RDW Coeff of Adrian 12.3 Plt Count 174 MPV 9.6 Immature Gran % (Auto) 0.3 Neut % (Auto) 67.4 Lymph % (Auto) 16.4 [place] % (Auto) 11.8 Eos % (Auto) 3.3 Baso % (Auto) 0.8 Neut # (Auto) 6.10 Lymph # (Auto) 1.49 [place] # (Auto) 1.07 H Eos # (Auto) 0.30 Baso # (Auto) 0.07 Immature Gran # (Auto) 0.03 H Sodium 138 Potassium 4.6 Chloride 104 Carbon Dioxide 29 Anion Gap 5 BUN 23 Creatinine 1.64 H Est Cr Clr Drug Dosing 45.8 Est GFR ( Amer) 47.0 Est GFR (Non-Af Amer) 40.6 BUN/Creatinine Ratio 14.0 Glucose 138 H POC Glucose 148 H Calcium 8.4 L Magnesium 1.8 C-Reactive Protein Procalcitonin Urine Color Urine Appearance Urine pH Ur Specific [place] Urine Protein Urine Glucose (UA) Urine Ketones Urine Blood Urine Nitrite Urine Bilirubin Urine Urobilinogen Ur Leukocyte Esterase Urine WBC (Auto) Urine RBC (Auto) U Hyaline Cast (Auto) U Epithel Cells (Auto) Urine Bacteria (Auto) Anaplasma Smear A. phagocytophilum DNA Babesia Smear Babesia microti DNA PCR Lyme Disease IgG Ab Lyme Disease IgM Ab E.chaffeensis DNA (PCR) Q Fever Phase I IgG Ab Q Fever Phase I IgM Ab Q Fever Phase II IgG Ab Q Fever Phase II IgM Ab [place] IgG Ab [place] IgM Ab Typhus Fever IgG Ab Typhus Fever IgM Ab 12/01/22 12/01/22 12/01/22 09:08 09:08 09:08 WBC RBC Hgb Hct MCV MCH MCHC RDW Std Deviation RDW Coeff of Adrian Plt Count MPV Immature Gran % (Auto) Neut % (Auto) Lymph % (Auto) [place] % (Auto) Eos % (Auto) Baso % (Auto) Neut # (Auto) Lymph # (Auto) [place] # (Auto) Eos # (Auto) Baso # (Auto) Immature Gran # (Auto) Sodium Potassium Chloride Carbon Dioxide Anion Gap BUN Creatinine Est Cr Clr Drug Dosing Est GFR ( Amer) Est GFR (Non-Af Amer) BUN/Creatinine Ratio Glucose POC Glucose Calcium Magnesium C-Reactive Protein 7.23 H Procalcitonin < 0.05 Urine Color Urine Appearance Urine pH Ur Specific [place] Urine Protein Urine Glucose (UA) Urine Ketones Urine Blood Urine Nitrite Urine Bilirubin Urine Urobilinogen Ur Leukocyte Esterase Urine WBC (Auto) Urine RBC (Auto) U Hyaline Cast (Auto) U Epithel Cells (Auto) Urine Bacteria (Auto) Anaplasma Smear See Comment A. phagocytophilum DNA Babesia Smear See Comment Babesia microti DNA PCR Lyme Disease IgG Ab Negative Lyme Disease IgM Ab Negative E.chaffeensis DNA (PCR) Q Fever Phase I IgG Ab Q Fever Phase I IgM Ab Q Fever Phase II IgG Ab Q Fever Phase II IgM Ab [place] IgG Ab [place] IgM Ab Typhus Fever IgG Ab Typhus Fever IgM Ab 12/01/22 12/01/22 12/01/22 09:08 09:08 09:08 WBC RBC Hgb Hct MCV MCH MCHC RDW Std Deviation RDW Coeff of Adrian Plt Count MPV Immature Gran % (Auto) Neut % (Auto) Lymph % (Auto) [place] % (Auto) Eos % (Auto) Baso % (Auto) Neut # (Auto) Lymph # (Auto) [place] # (Auto) Eos # (Auto) Baso # (Auto) Immature Gran # (Auto) Sodium Potassium Chloride Carbon Dioxide Anion Gap BUN Creatinine Est Cr Clr Drug Dosing Est GFR ( Amer) Est GFR (Non-Af Amer) BUN/Creatinine Ratio Glucose POC Glucose Calcium Magnesium C-Reactive Protein Procalcitonin Urine Color Urine Appearance Urine pH Ur Specific [place] Urine Protein Urine Glucose (UA) Urine Ketones Urine Blood Urine Nitrite Urine Bilirubin Urine Urobilinogen Ur Leukocyte Esterase Urine WBC (Auto) Urine RBC (Auto) U Hyaline Cast (Auto) U Epithel Cells (Auto) Urine Bacteria (Auto) Anaplasma Smear A. phagocytophilum DNA Pending Babesia Smear Babesia microti DNA PCR Pending Lyme Disease IgG Ab Lyme Disease IgM Ab E.chaffeensis DNA (PCR) Pending Q Fever Phase I IgG Ab Pending Q Fever Phase I IgM Ab Pending Q Fever Phase II IgG Ab Pending Q Fever Phase II IgM Ab Pending [place] IgG Ab Pending [place] IgM Ab Pending Typhus Fever IgG Ab Pending Typhus Fever IgM Ab Pending 12/01/22 11:32 WBC RBC Hgb Hct MCV MCH MCHC RDW Std Deviation RDW Coeff of Adrian Plt Count MPV Immature Gran % (Auto) Neut % (Auto) Lymph % (Auto) [place] % (Auto) Eos % (Auto) Baso % (Auto) Neut # (Auto) Lymph # (Auto) [place] # (Auto) Eos # (Auto) Baso # (Auto) Immature Gran # (Auto) Sodium Potassium Chloride Carbon Dioxide Anion Gap BUN Creatinine Est Cr Clr Drug Dosing Est GFR ( Amer) Est GFR (Non-Af Amer) BUN/Creatinine Ratio Glucose POC Glucose 156 H Calcium Magnesium C-Reactive Protein Procalcitonin Urine Color Urine Appearance Urine pH Ur Specific [place] Urine Protein Urine Glucose (UA) Urine Ketones Urine Blood Urine Nitrite Urine Bilirubin Urine Urobilinogen Ur Leukocyte Esterase Urine WBC (Auto) Urine RBC (Auto) U Hyaline Cast (Auto) U Epithel Cells (Auto) Urine Bacteria (Auto) Anaplasma Smear A. phagocytophilum DNA Babesia Smear Babesia microti DNA PCR Lyme Disease IgG Ab Lyme Disease IgM Ab E.chaffeensis DNA (PCR) Q Fever Phase I IgG Ab Q Fever Phase I IgM Ab Q Fever Phase II IgG Ab Q Fever Phase II IgM Ab [place]ettsia IgG Ab [place] IgM Ab Typhus Fever IgG Ab Typhus Fever IgM Ab (1) Chest pain Chest pain type: unspecified Qualified Code(s): R07.9 - Chest pain, unspecified
--- NOTE | 2022-12-01 14:53 | Discharge Summary ---
Date of Service December 01, 2022 Admission HPI Per Admitting Provider History obtained from patient, family, and records. Medical history significant for nonocclusive CAD, SSS status post recent PPM, A. fib status post ablation on Eliquis, COPD/asthma, BETY/CPAP intolerance, chronic polycythemia, hypertension, hyperlipidemia, DM2 on oral medications, hypothyroidism, GERD, past tobacco abuse. Last confinement 2015 for recurrent atrial flutter status post ablation. Patient with exertional SOB symptoms last year. Cardiac cath recommendation by junior technical writer denied by insurance. No inducible ischemia on outpatient Lexiscan nuclear stress test last July 2022. Patient underwent elective PPM placement for tachybradycardia syndrome 2 days ago at [facility]. No immediate postprocedure concerns. Patient was in bed last night when he experienced pleuritic substernal pain without radiation with shortness of breath. No unusual cough symptoms. No palpitations. No previous episodes. Compliant with home medications. EMS called. Initial blood pressure at home noted to be 190/110. Patient does not check BP regularly at home but never that high. Chest pain improvement following aspirin and nitro Rx administered at home. Patient brought to the ER for evaluation. Patient noted to be in rapid A. fib upon arrival at the ER. Heart rate 140s. 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 Admission Exam Per Admitting Provider GENERAL: Comfortable, pleasant, obese, no respiratory distress SKIN: Normal color, warm HEENT: [place]dal[place] palpebral conjunctivae, no ptosis, moist buccal mucosa NECK : Supple, short neck, no tenderness CHEST : CTA, no tenderness HEART : Irregular, no obvious murmurs ABDOMEN: Some distention, nontender EXTREMITIES : No LE swelling/tenderness, no other conspicuous deformities noted NEUROLOGIC : Coherent, no facial asymmetry, no other gross focality Principal Diagnosis Chest pain Cardiac pacemaker in situ Hypertensive heart disease Discharge Exam GENERAL: Alert and oriented x3. NAD, on RA. Obese Class I. HEENT: No pallor, no icterus. Pupils equal, round and reactive to light. Oral mucosa moist. NECK: No JVD, no neck masses. HEART: S1 and S2 heard. Regular rate and rhythm. No murmur, no gallop. RESPIRATORY SYSTEM: Normal AP diameter. No accessory muscle use. No wheezing, no crackles. ABDOMEN: Soft, bowel sounds present, nontender, no distention. CENTRAL NERVOUS SYSTEM: No facial droop. Speech is clear. Obeys simple commands. Moves extremities. EXTREMITIES: No edema, no erythema seen. Discharge Data Allergies Allergy/AdvReac Type Severity Reaction Status Date / Time bee venom protein (honey bee) Allergy Severe Anaphylaxis Verified 03/30/22 09:17 Consultations 11/30/22 02:18 ED Decision to Admit Stat 11/30/22 04:36 Consult Cardiology Routine Hospital Course (1) Cardiac pacemaker in situ: (2) Afib: (3) MEMBRENO (dyspnea on exertion): Plan 72-year-old man with PMH of nonocclusive CAD status post recent PPM for SSS, A. fib status post ablation on Eliquis, COPD/asthma, BETY/CPAP intolerance, chronic polycythemia, HTN, HLD, DM2, hypothyroidism, GERD, past tobacco abuse who underwent elective PPM placement for tachybradycardia syndrome 2 days ago at [facility] presented 11/30 with pleuritic substernal chest pain without radiation, aggravated with deep breathing, associated with some shortness of breath. He was managed for chest pain and dyspnea on exertion status post recent pacemaker placement. Patient denies any recent viral-like illness or diarrhea or fever or myalgia. Admitting labs and CXR fairly WNL, no evidence of pneumothorax on CXR. Troponin was elevated at 103.8, down trended, chest pain not very indicative of ACS. For his pleuritic chest pain post cardiac procedure, cardiology evaluated, Amiod arone has been started for his tachybradycardia syndrome. Patient completed 2 laps in the hallway without any chest pain/lightheadedness/dizziness/palpitation. Today patient complaints no chest pain even with deep breathing, patient is hemodynamically stable and would like to go home. For his acute kidney injury over chronic kidney injury, patient was made aware that his renal parameters are poorer than his baseline, he insisted on going home today, he is made aware to get in touch with his PCP office for blood test BMP on Saturday and have a close follow-up with his PCP and cardiology upon discharge. He was also advised to maintain adequate hydration with 2 to 2.5 L of fluid per day. His rash on the inner thigh on the right side looks like allergic/contact derm atitis rather than tickborne, but since she comes in with chest pain/tickborne serology has been sent. Patient to follow-up with the final results with his PCP office. Patient aware. Discussed with cardiology. Following instructions were communicated at the point of discharge: To the patient/his /his daughter With your primary care physician within a week time and likely you will need la bs. As discussed at the bedside, your kidney function is poorer than your baseline, you will need lab test BMP drawn on Saturday. You will have to call your primary care office to set up the test and follow-up with your primary care within a week time. Maintain fluid intake of around 2 to 2.5 L/day. Follow-up with your cardiology as: pacemaker check follow-up as scheduled 12/06/2022, clinic follow-up 12/12/2022 Take your medications as prescribed. Home Health Attestation I certify that this patient is under my care and that I, or a physicians credit assistant working with me, had a face to-face encounter that meets the home health [id number] encounter requirements with this patient. The encounter with the patient was in whole, or in part, for the following medical condition, which is the primary reason for home health care (list medical condition): I certify that, based on my findings, the following services are medically necessary home health services: My clinical findings support the need for the above services because: Further, I certify that my clinical findings support that this patient is homebound (i.e. absences from home require considerable and taxing effort and are for medical reasons or jehovah's witness services or infrequently or of short durat ion when for other reasons) because: Certification for Home Health Services: Based on the above findings, I certify that this patient is confined to the home and needs intermittent senior care care, physical therapy and/or speech therapy or continues to need occupational therapy. The patient is under my care, and I have initiated the establishment of the plan of care. This patient will be followed by a physician who will periodically review the plan of care. Total Time Total Time Spent Total Time Spent (In Minutes): 50 Discharge Plan Discharge Items Patient Disposition: Home - Self-Care Reason For Visit: NSTEMI Discharge Diagnosis: Chest pain Cardiac pacemaker in situ Hypertensive heart disease Activity: Resume your previous activity Non-emergency contact: Primary Care Provider Call non-emergency contact if: you have any medication questions, your symptoms worsen, your pain is worsening and your temperature is above 101.5 Follow-up/Referrals: Arielle Arevalo MD [Primary Care Provider] - Diet: Carb Consistent or DM2 and Heart Healthy Addtl Attending Provider Instructions: With your primary care physician within a week time and likely you will need labs. As discussed at the bedside, your kidney function is poorer than your baseline, you will need lab test BMP drawn on Saturday. You will have to call your primary care office to set up the test and follow-up with your primary care within a week time. Maintain fluid intake of around 2 to 2.5 L/day. Follow-up with your cardiology as: pacemaker check follow-up as scheduled 12/06/2022, clinic follow-up 12/12/2022 Take your medications as prescribed. Pending Studies at Discharge: Yes (Final results on tick borne serology.) Stand-Alone Forms: [facility] [employer], Smoking Cessation Medications and DC Order Prescriptions: New amiodarone 200 mg Tablet 200 mg PO BID Qty: 60 0RF Continued metformin 500 mg tablet 500 mg PO AMHS atorvastatin 20 mg tablet 20 mg PO HS aspirin 81 mg Tablet,Delayed Release (Dr/Ec) 81 mg PO DAILY montelukast 10 mg tablet 10 mg PO QAM metoprolol succinate 25 mg tablet extended release 24 hr 25 mg PO AMHS fluticasone propionate 50 mcg/actuation spray,suspension 2 spray INTRANASAL DAILY levothyroxine 125 mcg tablet 125 mcg PO DAILYBB amlodipine 5 mg tablet 5 mg PO QAM Multi-Vitamin W/Minerals Capsule 1 cap PO DAILY epinephrine [EpiPen] 0.3 mg/0.3 mL Auto-Injector 0.3 mg IM UD PRN (Reason: severe reaction) Rx Instructions: place orange end against the outer thigh and press firmly, hold in place for 10 seconds and go to emergency room albuterol sulfate 90 mcg/actuation HFA aerosol inhaler 2 puff INHALATION Q4 PRN (Reason: cough,SOB,or wheezing) lorazepam 1 mg tablet 1 mg PO UD PRN (Reason: 30 min prior to MRI) fluticasone furoate-vilanterol [Breo Ellipta] 200-25 mcg/dose Blister With Device 1 inh INHALATION QAM Rx Instructions: rinse after famotidine [Pepcid] 20 mg Tablet 20 mg PO HS Eliquis 5 mg Tablet 5 mg PO AMHS docusate sodium 100 mg Capsule 100 mg PO AMHS Discharge Orders: Discharge Order (Routine); Ordered 12/01/22 Ordered By: Rony Madera Admission Data Admit Date/Time: 11/30/22 03:26 Attending Provider: Rony Madera Admit Provider: Ck Tavarez Primary Care Provider: Arielle Arevalo Other Providers: Ck Tavarez ; Elliot Ruiz ; Sean Moreira ; Charles Boles ; Ruben Mar ; Bernardo Kincaid ; Balbir Alva ; Elke Ansari ; Francia Reed ; Brooklynn Gamez ; Wero Gant
[2022-12-01] MEDS ORDERED: AMIODARONE 200 MG TAB PO SCH (21:00)
--- NOTE | 2022-12-02 21:22 | Electrocardiogram Report ---
Test Reason : Blood Pressure : / mmHG Vent. Rate : 072 BPM Atrial Rate : 322 BPM P-R Int : 000 ms QRS Dur : 094 ms QT Int : 418 ms P-R-T Axes : 090 -19 150 degrees QTc Int : 457 ms Atrial flutter with variable A-V block with occasional ventricular-paced complexes T wave abnormality, consider lateral ischemia Abnormal ECG When compared with ECG of 30-NOV-2022 04:33, Electronic ventricular pacemaker is now Present Confirmed by Ford Gomez ([id number]) on 12/02/2022 9:21:30 PM Referred By: REFERRED SELF Confirmed By:Ford Gomez
[2022-12-05 09:09] LABS: Ehrlichia chaff DNA Bld Negative (Negative)
[2022-12-06 23:38] LABS: Babesia microti DNA Not Detected (Not Detected); Q Fever IgG, Phase I NEGATIVE; Q Fever Phase I IgM Antibody NEGATIVE; Q Fever Phase II IgG Antibody NEGATIVE; Q Fever Phase II IgM Antibody NEGATIVE; R. typhi IgG Ab NOT DETECTED; R. typhi IgM Ab NOT DETECTED; RMSF IgG Ab NOT DETECTED; RMSF IgM Ab NOT DETECTED
== END 2022-12-01 16:53 | disposition home or self-care (01) | DRG 204 ==
LOC: ED 01:21 → 2S 03:26 → INTOOBSV 03:26 → 2S 04:08

== ENCOUNTER 2025-11-08 05:39 | Observation (INO) ==
--- NOTE | 2025-10-08 09:44 | PAT Medication Instructions ---
Medication Instructions Date of Service October 08, 2025 Home Medications atorvastatin 20 mg tablet 20 mg PO HS fluticasone propionate 50 mcg/actuation nasal spray,suspension 2 spray intranasal DAILY metoprolol succinate 25 mg tablet,extended release 24 hr 50 mg PO AMHS montelukast 10 mg tablet 10 mg PO HS apixaban 5 mg tablet (Eliquis) 5 mg PO AMHS docusate sodium 100 mg capsule 100 mg PO AMHS famotidine 20 mg tablet (Pepcid) 20 mg PO HS albuterol sulfate 90 mcg/actuation aerosol inhaler 2 puff inhalation Q4 PRN cough,SOB,or wheezing amlodipine 5 mg tablet 5 mg PO QAM epinephrine 0.3 mg/0.3 mL injection, auto-injector (EpiPen) 0.3 mg IM UD PRN severe reaction multivitamin with minerals 1 cap PO QAM azelastine 137 mcg (0.1 %) nasal spray 1 spray intranasal BID cetirizine 10 mg tablet 10 mg PO QAM empagliflozin 10 mg tablet (Jardiance) 10 mg PO QAM fluticasone fur. 200 mcg-umeclid 62.5 mcg-vilant 25 mcg inhalat.powder (Trelegy Ellipta) 1 inh inhalation QAM levothyroxine 100 mcg tablet 100 mcg PO QAM loratadine 10 mg tablet 10 mg PO QAM tramadol 50 mg tablet 50 mg PO DAILY PRN Pain trazodone 50 mg tablet 50 mg PO PM Continue as directed epinephrine 0.3 mg/0.3 mL injection, auto-injector (EpiPen) 0.3 mg IM UD PRN severe reaction (if needed) STOP taking 3 days before surgery empagliflozin 10 mg tablet (Jardiance) 10 mg PO QAM ASK your prescriber and surgeon apixaban/Eliquis 5 mg tablet (Eliquis) 5 mg PO AMHS (From anesthesia perspective, apixaban/Eliquis is requested to be stopped 72 hours before surgery. Please check if okay with doctor that prescribes this to you) DO NOT take the morning of surgery docusate sodium 100 mg capsule 100 mg PO AMHS multivitamin with minerals 1 cap PO QAM cetirizine 10 mg tablet 10 mg PO QAM loratadine 10 mg tablet 10 mg PO QAM Take morning of surgery With a small sip of water, OTHERWISE NOTHING TO EAT OR DRINK AFTER MIDNIGHT: fluticasone propionate 50 mcg/actuation nasal spray,suspension 2 spray intranasal DAILY metoprolol succinate 25 mg tablet,extended release 24 hr 50 mg PO AMHS albuterol sulfate 90 mcg/actuation aerosol inhaler 2 puff inhalation Q4 PRN cough,SOB,or wheezing (use if needed; please bring rescue inhaler with you to hospital day of surgery if possible) amlodipine 5 mg tablet 5 mg PO QAM azelastine 137 mcg (0.1 %) nasal spray 1 spray intranasal BID fluticasone fur. 200 mcg-umeclid 62.5 mcg-vilant 25 mcg inhalat.powder (Trelegy Ellipta) 1 inh inhalation QAM levothyroxine 100 mcg tablet 100 mcg PO QAM tramadol 50 mg tablet 50 mg PO DAILY PRN Pain (if needed) Take evening before surgery atorvastatin 20 mg tablet 20 mg PO HS metoprolol succinate 25 mg tablet,extended release 24 hr 50 mg PO AMHS montelukast 10 mg tablet 10 mg PO HS docusate sodium 100 mg capsule 100 mg PO AMHS famotidine 20 mg tablet (Pepcid) 20 mg PO HS albuterol sulfate 90 mcg/actuation aerosol inhaler 2 puff inhalation Q4 PRN cough,SOB,or wheezing (if needed) azelastine 137 mcg (0.1 %) nasal spray 1 spray intranasal BID tramadol 50 mg tablet 50 mg PO DAILY PRN Pain (if needed) trazodone 50 mg tablet 50 mg PO PM Other Notes If you have any questions please call us at [phone] or [phone] or [phone] or [phone]
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
[2025-11-08] MEDS: LR 60ML/HR IV SCH (05:48)
[2025-11-08] MEDS: GABAPENTIN 300 MG CAP PO SCH (06:06)
[2025-11-08] MEDS: LR 15ML/HR IV SCH (06:06)
[2025-11-08] MEDS: ACETAMINOPHEN 500 MG TAB PO SCH ×2 (06:06→16:35)
[2025-11-08] MEDS: dexAMETHasone**PF** 10 MG/ML VIAL IV SCH (06:06)
[2025-11-08] MEDS: FAMOTIDINE 20 MG TAB PO SCH ×2 (06:06→21:24)
[2025-11-08] MEDS ORDERED: BUPIVACAINE 0.5 % 5 MG/1 ML PF 10ML VIAL ONE (06:33)
--- NOTE | 2025-11-08 06:36 | History & Physical Bridge Note ---
Date of Service November 08, 2025 History & Physical Bridge Note I have examined the patient, reviewed the History & Physical and in the interval since the performance of the History & Physical I have noted the following changes of clinical significance: no changes noted
[2025-11-08] MEDS ORDERED: ONDANSETRON INJ 2 MG/ML 2 ML VIAL IV PRN ×2 (06:40→11:13)
[2025-11-08] MEDS ORDERED: ATROPINE SULFATE 0.1 MG/ML 10ML SYR IV PRN (06:40)
[2025-11-08] MEDS ORDERED: PROPOFOL IV EMULSION 10 MG/ML 20 ML VIAL IV ONE (06:40)
[2025-11-08] MEDS ORDERED: MIDAZOLAM HCL 1 MG/ML 2ML VIAL ONE (06:40)
[2025-11-08] MEDS ORDERED: LIDOCAINE 2% 2 ML VIAL/AMP(20MG/ML) INFIL ONE (06:40)
[2025-11-08] MEDS: TRANEXAMIC ACID 1,000 MG **IV Pre-op IV SCH (06:47)
[2025-11-08] MEDS: ORTHO JOINT ANESTHETIC ONE (07:34)
[2025-11-08] MEDS: ROPIV 0.5% 246mg, Ketorolac 30mg, EPINEPHrine 0.5mg in NSS INFIL SCH (07:40)
[2025-11-08] MEDS ORDERED: ePHEDrine sulfate 50 MG/5 ML SYR ONE (07:48)
[2025-11-08] MEDS ORDERED: PHENYLEPHRINE 100MCG/ML 5ML SYR ONE (07:48)
--- NOTE | 2025-11-08 08:06 | Operative Report ---
PG Post Operative Report Pre & Post Diagnosis Operation Date: 11/08/25 07:00 Pre-Op Diagnosis: Hip arthritis Post-Op Diagnosis: Hip arthritis I identified the patient and participated in the time-out.: Yes Procedure Operation Date: 11/08/25 07:00 Actual Procedures p Right Anterior Total Hip Arthroplasty(Right) - Damion Zaragoza DO Surgeon Damion Zaragoza DO Extrusion Die Template Maker Magdiel Hyatt PA-C Estimated Blood Loss 200 Findings Consistent with Post-Op Diagnosis Specimens Right femoral head Description of Procedure Implants used I used a ZimmerBiomet total hip arthroplasty system with a size 5 high offset Z1 stem, a 54 mm G7 cup, an E1 polyethylene liner, a 40 mm ceramic head with a +7 neck. Evelyn arrived at the hospital for the above procedure. He was seen in the preoperative holding area and the operative extremity was identified and signed. He was given a spinal anesthetic, a preoperative antibiotic, and TXA. He was then taken back to the operating room and laid on the table in the supine position. He was given basic sedation. The operative leg was secured to a Puristst leg positioner. The hip was then prepped and draped in sterile fashion. A timeout was done and the patient and the operative extremity was properly identified. An anterior approach was used. Dissection was taken down through the fascia and the tensor muscle belly was retracted laterally and the rectus was retracted medially. The circumflex vessels were identified and ligated. The capsule was then incised and tagged for later repair. The femoral neck was then cut and the femoral head was removed. The acetabulum was exposed. Time was spent doing a complete circumferential labral release. Sequential reaming of the acetabulum up to a size 53 reamer was done. Final reamings were done under fluoroscopy to ensure appropriate version. A Biomet 54 mm G7 cup was then impacted into place. The E1 polyethylene liner was then snapped into place. Surrounding soft tissues were then injected with 100 cc of an orthopedic pain control cocktail. The proximal femur was then exposed. Sequential broaching up to a size 5 broach was done. Off that broach a size 40 head with a +7 neck was trialed. The hip was reduced and fluoroscopic images showed anatomic alignment of the implants in acceptable length. The broach was removed. The final size 5 high offset Z1 stem was then impacted into place. A ceramic 40 mm head with a +7 neck was then impacted onto the stem and the hip was reduced. Final fluoroscopic images showed anatomic alignment of the hip. The capsule was then closed with #1 Vicryl suture. An Irrisept lavage was then done for 3 minutes. The joint was then irrigated with normal saline solution. The fascia was closed with #1 PDS suture. Skin was closed with 2-0 Vicryl, Jeffry Zipline, and a Silverlon dressing. He was then transferred to a hospital bed and taken to the post anesthesia care unit in stable condition. He tolerated the procedure well. Magdiel Hyatt PA-C, was present for the entire procedure. He was critical for patient positioning, prepping, draping, retraction exposure, wound closure and application of sterile dressing. I attest to the content of the Intraoperative Record and any orders documented therein. Any exceptions are noted below.
--- NOTE | 2025-11-08 09:06 | Fluoroscopy Report ---
INTRAOPERATIVE RADIOGRAPHS CLINICAL HISTORY: Right hip arthroplasty. Fluoro time: 11 seconds Ka,r: 2.23 mGy FINDINGS: 2 spot fluoroscopic views of the right hip are correlated with x-rays dated 07/30/2025. A bi polar right hip arthroplasty is in near anatomic alignment. There is no evidence of acute fracture on these fluoroscopic images. Overlying soft tissue edema is observed. IMPRESSION: Intraoperative images from a right hip arthroplasty procedure. Electronically signed by: Rodri Bradford M.D. 11/08/2025 9:04 AM
--- NOTE | 2025-11-08 09:06 | XRay Report ---
SINGLE VIEW PELVIS; SINGLE VIEW RIGHT HIP CLINICAL HISTORY: Postoperative examination. FINDINGS: An AP portable view of the hips and pelvis with a crosstable lateral portable view of the r ight hip are compared to study dated 07/30/2025. A bipolar right hip arthroplasty is in near-anatomic alignment. No acute fracture is identified. There are expected postoperative changes overlying the right hip including subcutaneous gas and soft tissue swelling. Advanced atherosclerotic calcification is seen in the femoral arteries. IMPRESSION: Expected postoperative findings status post right hip arthroplasty. No acute fracture is seen. ACT 112: Negative or not required by law. Electronically signed by: Rodri Bradford M.D. 11/08/2025 9:05 AM
--- NOTE | 2025-11-08 10:06 | Anesthesiology Progress Note ---
Date of Service November 08, 2025 Anesthesia Post Procedure Vital Signs Vital Signs: Temp Pulse Pulse Resp BP Pulse Ox O2 Del Method 11/08/25 10:00 64 17 132/79 99 Room Air 11/08/25 09:45 36.4 C L 73 13 132/78 96 Room Air 11/08/25 09:30 65 12 132/74 94 Room Air 11/08/25 09:15 70 15 127/74 96 Room Air 11/08/25 09:10 73 15 141/84 H 94 Room Air 11/08/25 09:00 79 15 134/83 95 Oxymask 11/08/25 08:50 62 12 129/71 95 Oxymask 11/08/25 08:40 61 11 L 125/66 95 Oxymask 11/08/25 08:30 36.5 C 65 13 143/76 H 95 Oxymask 11/08/25 05:45 36.9 C 80 20 171/98 H 95 Room Air O2 Flow Rate 11/08/25 10:00 11/08/25 09:45 11/08/25 09:30 11/08/25 09:15 11/08/25 09:10 11/08/25 09:00 3 11/08/25 08:50 3 11/08/25 08:40 7 11/08/25 08:30 7 11/08/25 05:45 Pain Intensity Right Hip: Pain Intensity: 2 Notes Mental Status: alert / awake / arousable Patient Amnestic to Procedure: Yes Nausea / Vomiting: adequately controlled Pain: adequately controlled Airway Patency, RR, SpO2: stable & adequate BP & HR: stable & adequate Hydration State: stable & adequate Neuraxial Anesthesia: was administered Anesthetic Complications: no major complications apparent
[2025-11-08] MEDS ORDERED: MAGNESIUM HYDROXIDE SUSP 30 ML UDC PO PRN (11:13)
[2025-11-08] MEDS ORDERED: HYDROmorphone INJ 0.5 MG/0.5 ML SYR IV PRN (11:13)
[2025-11-08] MEDS ORDERED: EMPAGLIFLOZIN 10 MG TAB PO SCH (11:13)
[2025-11-08] MEDS ORDERED: NALOXONE HCL 0.4 MG/1 ML VIAL/CARP IV PRN (11:13)
[2025-11-08] MEDS ORDERED: METOCLOPRAMIDE HCL INJ 5 MG/ML 2 ML VIAL IV PRN (11:13)
[2025-11-08] MEDS ORDERED: PHARMACY GLYCEMIC MGMT CONSULT PRN (11:13)
[2025-11-08] MEDS: MULTIVITAMIN TAB PO SCH (12:34)
[2025-11-08] MEDS: KETOROLAC TROMETHAMINE 15 MG/ML VIAL IV SCH (12:35)
[2025-11-08] MEDS: METOPROLOL SUCC 50MG EXT REL TAB PO SCH (12:35)
[2025-11-08] MEDS: LEVOTHYROXINE SODIUM 100 MCG TABLET PO SCH (12:35)
--- NOTE | 2025-11-08 12:42 | Pharmacy Report ---
Pharmacy Glycemic Short Note 2 - Date of Service November 08, 2025 - Glycemic Short BSG Results (Last 24 hours): 11/08/25 11/08/25 11/08/25 05:39 08:35 11:41 POC Glucose 167 H 153 H 193 H OUTPATIENT ANTIDIABETIC REGIMEN: * Jardiance 10mg PO daily HbA1c: 7.5% on 10/11/25 ASSESSMENT: * Evelyn is a 75 year old male who was admitted today for a right total hip arthroplasty (POD#0). Pharmacy was consulted for glycemic management postop. * BSG preop was 167mg/dL and postop was 193mg/dL. Dexamethasone 10mg iv x 1 was given preop. Lantus 10 units SQ x 1 was ordered and a weight based bolus insulin regimen with a stress between 1 and 2 was started. PLAN FOR INPATIENT GLYCEMIC CONTROL: * Hold outpatient oral diabetes medications * Basal insulin * Lantus 10 units SQ x 1 * Bolus insulin * NovoLog per scale ACHS or Q6hrs while NPO * Goal Range: Low 120 mg/dL - High 150 mg/dL * Correction Factor: 40 mg/dL/unit * Nutritional / Prandial insulin per carb ratio of 1 unit per 15 grams CHO consumed
[2025-11-08] MEDS: LANTUS PER UNIT CHARGE SC ONE (12:48)
[2025-11-08] MEDS: DOCUSATE SODIUM 100 MG CAP PO SCH (12:48)
[2025-11-08] MEDS: INSULIN ASPART PER UNIT CHARGE SC SCH (12:48)
[2025-11-08] MEDS: SODIUM CHLORIDE 0.9% 1,000 ML IV SCH (15:30)
[2025-11-08] MEDS: NovoLIN-N (NPH) PER UNIT CHARGE SQ ONE (21:21)
[2025-11-08] MEDS: SENNA 8.6 MG TAB PO SCH (21:24)
[2025-11-08] MEDS: MONTELUKAST SODIUM 10 MG TABLET PO SCH (21:25)
[2025-11-08] MEDS: ATORVASTATIN 20 MG TAB PO SCH (21:25)
[2025-11-09] MEDS: INSULIN ASPART PER UNIT CHARGE SC SCH (00:14)
[2025-11-09 04:40] VITALS: TEMP 97.7
[2025-11-09 07:43] VITALS: PULSE 65; RESP 17; O2SAT 92
--- NOTE | 2025-11-09 08:31 | Orthopedic Progress Note ---
Date of Service November 09, 2025 Assessment & Plan (1) S/P total right hip arthroplasty: * Continue Current Treatment * Disposition: home * Daily treatment: Physical Therapy/ Occupational Therapy per protocol * Weight bearing status: WBAT * Continue to monitor for ABLA * Pain control * DVT prophylaxis, ASA * Office/hospital f/u 2 weeks for progress check and staple/suture removal * Plan for discharge today pending PT/OT clearance Subjective . Active Problems: S/p R BÁRBARA POD 1 75 y/o male s/p R BÁRBARA. Doing well overall, pain managed and improved function. Denies fever/chills, chest pain/SOB, nausea/vomiting. Otherwise no complaints. Review of Systems All systems reviewed & are unremarkable except as noted in HPI & below. Physical Exam . * General: Alert and oriented, no acute distress * Constitutional: well-developed, well-nourished. * Respiratory: Normal respiratory effort, no distress * Gastrointestinal: No tenderness to palpation, no rigidity or guarding. * Skin: No rash or lesion. * Neurologic: Grossly normal * Musculoskeletal: Right knee surgical dressing BÁRBARA, not removed for exam. Otherwise no obvious deformity or overlying skin changes RLE. Diffuse TTP distal thigh and knee region. Otherwise no specific tenderness of proximal thigh, lower leg, foot/ankle. AROM knee flexion [] degrees. AROM foot/ankle intact. Sensation intact plantar/dorsal foot. Brisk capillary refill. Results & Data Results & Data Laboratory Results . Diagnostic Findings . Hip X-Ray 11/08/25 07:00 INTRAOPERATIVE RADIOGRAPHS CLINICAL HISTORY: Right hip arthroplasty. Fluoro time: 11 seconds Ka,r: 2.23 mGy FINDINGS: 2 spot fluoroscopic views of the right hip are correlated with x-rays dated 07/30/2025. A bipolar right hip arthroplasty is in near anatomic alignment. There is no evidence of acute fracture on these fluoroscopic images. Overlying soft tissue edema is observed. IMPRESSION: Intraoperative images from a right hip arthroplasty procedure. Electronically signed by: Rodri Bradford M.D. 11/08/2025 9:04 AM Hip/Pelvis X-Ray 11/08/25 08:37 SINGLE VIEW PELVIS; SINGLE VIEW RIGHT HIP CLINICAL HISTORY: Postoperative examination. FINDINGS: An AP portable view of the hips and pelvis with a crosstable lateral portable view of the right hip are compared to study dated 07/30/2025. A bipolar right hip arthroplasty is in near-anatomic alignment. No acute fracture is identified. There are expected postoperative changes overlying the right hip including subcutaneous gas and soft tissue swelling. Advanced atherosclerotic calcification is seen in the femoral arteries. IMPRESSION: Expected postoperative findings status post right hip arthroplasty. No acute fracture is seen. ACT 112: Negative or not required by law. Electronically signed by: Rodri Bradford M.D. 11/08/2025 9:05 AM PG Care Time/CCT Total # of Minutes Spent Total Time Spent with Patient: Total time spent is greater than 50% in coordination of care (as documented) at patient's floor/unit and/or counseling patient: Coding Level of Care Code 44662 Post Operative Follow-Up Diagnoses S/P total right hip arthroplasty Z96.641
[2025-11-09] MEDS: APIXABAN 5 MG TABLET PO SCH (08:35)
[2025-11-09 10:46] VITALS: BP 121/77
== END 2025-11-09 10:59 | disposition home health service (06) ==
LOC: 3E 05:39 → ASU 05:39